=== PATIENT | female | born 1995 | race Caucasian/White ===

== ENCOUNTER → 2017-03-21 20:29 | Emergency (ER) | payer OTHER ==
[~2017-03-21 20:29] MED LIST: Acetaminophen TAB* 325 MG PO ONE; Oseltamivir CAP* 75 MG CAP PO ONE
[2017-03-21 21:01] VITALS: BP 119/76
--- NOTE | 2017-03-21 22:24 | UC ---
Sherman Burris Gabriel, scribed for Krystyna Myles MD on 03/21/17 at 2219 . Throat Pain/Nasal Danial HPI - HPI Summary HPI Summary: This patient is a 21 year old F presenting to [facility] with a chief complaint of a sore throat since 03/14/17. Patient reports fatigue, productive cough, congestion , and myalgia. Patient denies n/v/d, and ear pain. The patients sleep has been disrupted due to cough. Pt has taken OTC meds with mild relief Positive exposure to flu and strep in her [employer]. Pt has been waking up with a bloody nose. No humidified. pt did get the flu vaccine Patients medication reviewed during this visit. - History of Current Complaint Chief Complaint: UCRespiratory Stated Complaint: COUGH,CONGESTION,ST Time Seen by Provider: 03/21/17 22:03 Hx Obtained From: Patient Hx Last Menstrual Period: BEGINNING FEBRUARY Onset/Duration: Lasting Weeks, Still Present Severity: Moderate Pain Intensity: 0 Pain Scale Used: 0-10 Numeric Cough: Productive Associated Signs & Symptoms: Positive: Negative - nvd, Sinus Discomfort, Fever - Allergies/Home Medications Allergies/Adverse Reactions: Allergies Allergy/AdvReac Type Severity Reaction Status Date / Time No Known Allergies Allergy Verified 03/21/17 21:01 Home Medications: Home Medications Acetaminophen [Mapap] 1,000 mg PO ONCE PRN 03/21/17 [History Confirmed 03/21/17] Estradiol [Minivelle] 03/21/17 [History] PMH/Surg Hx/FS Hx/Imm Hx Previously Healthy: Yes Other History Of: Negative For: HIV, Hepatitis B, Hepatitis C - Surgical History Surgical History: Yes Surgery Procedure, Year, and Place: OOPHORECTOMY (PREMATURE OVARIAN FAILURE) - Family History Known Family History: Negative: Hypertension, Seizure Disorder - Social History Occupation: Student Lives: Dormitory/Roommates Alcohol Use: None Substance Use Type: None Smoking Status (MU): Never Smoked Tobacco Review of Systems Constitutional: Fever ENT: Sore Throat, Sinus Congestion Musculoskeletal: Myalgia All Other Systems Reviewed And Are Negative: Yes Physical Exam Triage Information Reviewed: Yes Appearance: No Pain Distress, Well-Nourished, Other: - tired appearing Vital Signs: Initial Vital Signs Temp 100.1 F 03/21/17 20:58 Pulse 86 03/21/17 20:58 Resp 16 03/21/17 20:58 BP 119/76 03/21/17 20:58 Pulse Ox 99 03/21/17 20:58 Vital Signs Reviewed: Yes Eye Exam: Normal Eyes: Positive: Conjunctiva Clear ENT Exam: Normal ENT: Positive: Hearing grossly normal, Nasal congestion, TMs normal, Other - TM x 2 clear turbinated boggy + PND + erythema no exudate Neck exam: Normal Neck: Positive: Supple, Nontender, No Lymphadenopathy Respiratory Exam: Normal Respiratory: Positive: Chest non-tender, Lungs clear, Normal breath sounds Cardiovascular Exam: Normal Cardiovascular: Positive: RRR, No Murmur Abdominal Exam: Normal Abdomen Description: Positive: Nontender Bowel Sounds: Positive: Present Musculoskeletal Exam: Normal Musculoskeletal: Positive: Strength Intact Neurological Exam: Normal Neurological: Positive: Alert Psychological Exam: Normal Psychological: Positive: Normal Response To Family Skin Exam: Normal Throat Pain/Nasal Course/Dx - Course Course Of Treatment: Pt with fevers, sore throat, congestion, myalgia pt exposed to strep and flu in [place]. Will check strep, if neg, will treat presumtively for strep. hydrate. motrin/apap. secretion precuation. pt does not have classes tmrw. return precautions. pt in agreement with plan - Differential Dx/Diagnosis Provider Diagnoses: influenza like illness Discharge - Discharge Plan Condition: Stable Disposition: HOME Prescriptions: Oseltamivir CAP* [Tamiflu CAP*] 75 mg PO BID #9 cap Patient Education Materials: Influenza (ED) Referrals: [facility] [Primary Care Provider] - Additional Instructions: -These infections are spread by oral secretions. Do not share eating or drinking utensils. Frequent hand washing is important. Clean items that may get your secretions on them such as cell phones, ipads, computer mouse, television remotes. Once you start to feel better, change your toothbrush and your pillowcase - Alternate ibuprofen (Advil, Motrin) and tylenol every 3hours for pain. Take with food. do NOT take for more than 4-5 days - Okay to take over the counter decongestant - stay well hydrate. Drink plenty of non-alcoholic, non-caffinated beverage - humidify the air in the room where you sleep - contact the [facility] to schedule a follow-up appointment. Contact your doctor or return with questions or concerns The documentation as recorded by the scribe, Whitaker,Cullen accurately reflects the service I personally performed and the decisions made by me, Krystyna Myles MD.
== END | disposition home or self-care (01) ==
LOC: UCEAST 20:29
DX: J11.1 Influenza due to unidentified influenza virus with other respiratory manifestations (principal)
CPT/HCPCS: 87651; 99202; A9270-GY; G0463